=== PATIENT | female | born 1985 | race Caucasian/White ===

== ENCOUNTER 2022-09-06 14:14 | Emergency (ER) | payer OTHER ==
[2022-09-06 16:16] LABS: #Basophils 0.1 10x3/uL (0.0-0.2); #Eosinphils 0.4 10x3/uL (0.0-0.5); #Monocytes 0.6 10x3/uL (0.0-1.1); #Neutrophils 7.2 10x3/uL (1.5-8.4); %Basophils 0.9 % (0.0-2.0); %Lymphocytes 18.4 % (18.0-47.0); %Monocytes 6.1 % (0.0-10.0); %Neutrophils 69.8 % (40.0-75.0); Hemoglobin 8.8 g/dL (12.0-15.5); Mean Corpuscular HGB CONC 30.4 g/dL (32.0-36.0); Mean Corpuscular Hemoglobin 22.7 pg (27.0-33.0); Mean Corpuscular Volume 74.7 fl (81.6-98.3); Mean Platelet Volume 10.9 fl (7.4-10.4); Platelet Count 269 10x3/uL (150-450); RBC Distribution Width 19.1 % (11.5-14.5); Red Blood Cell (RBC) Count 3.87 10x6/uL (3.90-5.03); White Blood Cell (WBC) Count 10.3 10x3/uL (3.5-10.5)
[2022-09-06 16:24] LABS: BHCG - Serum Negative (NEGATIVE); Pregs Control Bar Appear? YES (CONTROL BAR)
[2022-09-06 16:25] LABS: Pregs Control Background? CLEAR/WHITE (CLR/WHITE)
[2022-09-06 16:27] LABS: ALT (SGPT) 11 U/L (8-55); AST (SGOT) 14 U/L (5-34); Albumin 3.9 g/dL (3.5-5.0); Alkaline Phosphatase 70 U/L (40-110); Anion Gap 13 mmol/L (10-20); BUN (Urea Nitrogen) 11 mg/dL (7.0-18.7); Bilirubin, Total 0.2 mg/dL (0.2-1.2); Calc. Creatinine Clearance 0 mL/min (70-130); Calcium 8.8 mg/dL (7.8-10.44); Carbon Dioxide 19 mmol/L (22-29); Chloride 110 mmol/L (98-107); Estimated GFR 89; Globulin 2.7 g/dL (2.4-3.5); Glucose 91 mg/dL (70-105); Protein, Total 6.6 g/dL (6.0-8.3); Sodium 138 mmol/L (136-145)
[2022-09-06] MEDS ORDERED: Ondansetron PF 4 MG/2 ML Vial ONE (17:17)
[2022-09-06] MEDS ORDERED: Dicyclomine 20 MG TAB ONE (17:18)
[2022-09-06 18:24] LABS: Bilirubin Neg (Negative); Blood, Urine Negative (Negative); Clarity Slightly Cloudy (Clear); Glucose, Urine (Dipstick) Normal (Negative); Ketone, Urine Negative (Negative); Leukocyte 25 (Negative); Nitrite Negative (Negative); Protein, Urine (Dipstick) 15 mg/dl (Neg-Trace); Specific Gravity, Urine 1.025 (1.005-1.030); Urobilinogen Normal mg/dL (Less than 2)
[2022-09-06 18:53] LABS: Bacteria/HPF 2+ HPF (None Seen); RBC/HPF 0-3 HPF (0-3)
[2022-09-06 18:55] LABS: Mucous/LPF 4+ LPF (<2+)
[2022-09-06 19:12] LABS: SARS-CoV-2 NAA Rapid Test Not Detected (NotDetected)
== END 2022-09-06 19:30 | disposition home or self-care (01) ==
LOC: CSHERS 14:14
DX: K92.2 Gastrointestinal hemorrhage, unspecified (principal); D64.9 Anemia, unspecified; E05.90 Thyrotoxicosis, unspecified without thyrotoxic crisis or storm; F17.210 Nicotine dependence, cigarettes, uncomplicated; Z20.822 Contact with and (suspected) exposure to COVID-19
CPT/HCPCS: 36415; 71045; 80053; 81003; 81015; 84484; 84703; 85025; 86850; 86900; 86901; 93005; 96374; J2405

== ENCOUNTER 2023-03-03 07:50 | Outpatient (CLI) | payer OTHER | END 2023-03-03 07:51 | disposition home or self-care (01) | LOC: CSHCT 07:50 | PROVIDERS: ATTEND Neurological Surgery | DX: M54.50 Low back pain, unspecified (principal); M47.816 Spondylosis without myelopathy or radiculopathy, lumbar region; M47.817 Spondylosis without myelopathy or radiculopathy, lumbosacral region | CPT/HCPCS: 72100; 72131 ==

== ENCOUNTER 2023-09-21 13:19 | Emergency (ER) | payer OTHER ==
[~2023-09-21 13:19] MED LIST: Iopamidol 370 76% 100 ML VIAL ONE
[2023-09-21 14:52] LABS: #Basophils 0.05 10x3/uL (0.0-0.2); #Monocytes 0.57 10x3/uL (0.0-1.1); %Basophils 0.6 % (0.0-2.0); %Eosinophils 3.5 % (0.0-6.0); %Lymphocytes 22.1 % (18.0-47.0); %Monocytes 6.7 % (0.0-10.0); %Neutrophils 66.7 % (40.0-75.0); Hematocrit 38.5 % (34.9-44.5); Hemoglobin 12.7 g/dL (12.0-15.5); Mean Corpuscular Hemoglobin 27.7 pg (27.0-33.0); Mean Corpuscular Volume 83.9 fl (81.6-98.3); Mean Platelet Volume 10.9 fl (7.4-10.4); Platelet Count 348 10x3/uL (150-450); RBC Distribution Width 13.2 % (11.5-14.5); Red Blood Cell (RBC) Count 4.59 10x6/uL (3.90-5.03); White Blood Cell (WBC) Count 8.5 10x3/uL (3.5-10.5)
[2023-09-21] MEDS ORDERED: diphenhydrAMINE 50 MG/ML VIAL ONE (14:59)
[2023-09-21] MEDS ORDERED: Morphine 4 MG/ML VIAL ONE (14:59)
[2023-09-21] MEDS ORDERED: Ondansetron PF 4 MG/2 ML Vial ONE (14:59)
[2023-09-21 15:11] LABS: ALT (SGPT) 46 U/L (8-55); AST (SGOT) 25 U/L (5-34); Albumin 3.7 g/dL (3.5-5.0); Alkaline Phosphatase 100 U/L (40-110); Anion Gap 14 mmol/L (10-20); BUN (Urea Nitrogen) 15 mg/dL (7.0-18.7); Bilirubin, Total 0.5 mg/dL (0.2-1.2); Calc. Creatinine Clearance 0 mL/min (70-130); Calcium 9.1 mg/dL (7.8-10.44); Carbon Dioxide 24 mmol/L (22-29); Chloride 105 mmol/L (98-107); Estimated GFR 81; Globulin 3.3 g/dL (2.4-3.5); Glucose 97 mg/dL (70-105); Lipase 22 U/L (8-78); Potassium 4.1 mmol/L (3.5-5.1); Sodium 139 mmol/L (136-145)
[2023-09-21 15:15] LABS: Troponin I Less than 0.010 ng/mL (< 0.028)
== END 2023-09-21 17:00 | disposition home or self-care (01) ==
LOC: CSHERS 13:19
DX: R07.2 Precordial pain (principal); G89.18 Other acute postprocedural pain; R42 Dizziness and giddiness; F17.210 Nicotine dependence, cigarettes, uncomplicated
CPT/HCPCS: 36415; 71275; 80053; 83690; 84484; 85025; 93005; 96374; 96375; J1200; J2270; J2405; Q9967